=== PATIENT | female | born 1985 | race African-American/Black ===

== ENCOUNTER 2017-01-24 21:26 | Emergency (ER) | payer SELFPAY ==
[~2017-01-24] VITALS: Ht 162.6 cm; Wt 54.4 kg
--- NOTE | 2017-01-24 21:35 | PHYS DOC ---
Past Medical History Past Medical History: No Pertinent History Past Surgical History: Appendectomy, Drug Use: None Adult General HPI HPI Patient is a 31 year old female who presents with confusion or fever. EMS was called by family for her acting odd and breathing heavily. EMS found her to have a heart rate in the 130s to 150s and she stated she is from [place] down here visiting and took a pain medicine because she had a cyst removed recently. Here she denies any fevers chills nausea vomiting, abdominal pain, shortness of breath or dysuria. She denies any illicit drug use or alcohol use today. She does state she smokes cigarettes. Review of Systems Review of Systems Constitutional: Denies fever or chills [] Eyes: Denies change in visual acuity, redness, or eye pain [] HENT: Denies nasal congestion or sore throat [] Respiratory: Denies cough or shortness of breath [] Cardiovascular: No additional information not addressed in HPI [] GI: Denies abdominal pain, nausea, vomiting, bloody stools or diarrhea [] : Denies dysuria or hematuria [] Musculoskeletal: Denies back pain or joint pain [] Integument: Denies rash or skin lesions [] Neurologic: Denies headache, focal weakness or sensory changes [] Endocrine: Denies polyuria or polydipsia [] Current Medications Current Medications Current Medications Medications (Trade) Dose Ordered Sig/Sarah Start Time Stop Time Status Last Admin Dose Admin Sodium Chloride 1,000 ml @ 1,000 mls/hr 1X ONCE 01/25/17 00:45 01/25/17 01:44 DC 01/25/17 00:45 1,000 MLS/HR Allergies Allergies Allergies Coded Allergies Type Severity Reaction Last Updated Verified No Known Drug Allergies 10/24/14 No Physical Exam Physical Exam Constitutional: Well developed, well nourished, no acute distress, non-toxic appearance. [] HENT: Normocephalic, atraumatic, bilateral external ears normal, oropharynx moist, no oral exudates, nose normal. [] Eyes: PERRLA, EOMI, conjunctiva normal, no discharge. [] Neck: Normal range of motion, no tenderness, supple, no stridor. [] Cardiovascular:Heart rate regular rhythm, no murmur [] Lungs & Thorax: Bilateral breath sounds clear to auscultation [] Abdomen: Bowel sounds normal, soft, no tenderness, no masses, no pulsatile masses. [] Skin: Warm, dry, no erythema, no rash. [] Back: No tenderness, no CVA tenderness. [] Extremities: No tenderness, no cyanosis, no clubbing, ROM intact, no edema. [] Neurologic: Alert and oriented X 3, normal motor function, normal sensory function, no focal deficits noted. [] Psychologic: Affect normal, judgement normal, mood normal. [] Current Patient Data Vital Signs Vital Signs Date Time Temp Pulse Resp B/P (MAP) Pulse Ox O2 Delivery O2 Flow Rate FiO2 01/25/17 00:23 85 18 137/61 (86) 98 Room Air 01/24/17 21:30 98.8 98.8 Lab Values Laboratory Tests Test 01/24/17 21:31 01/24/17 22:00 01/24/17 22:25 01/24/17 22:31 Ammonia 21 mcmol/L (11-34) White Blood Count 9.4 x10^3/uL (4.0-11.0) Red Blood Count 3.89 x10^6/uL (3.50-5.40) Hemoglobin 13.3 g/dL (12.0-15.5) Hematocrit 40.0 % (36.0-47.0) Mean Corpuscular Volume 103 fL (79-100) H Mean Corpuscular Hemoglobin 34 pg (25-35) Mean Corpuscular Hemoglobin Concent 33 g/dL (31-37) Red Cell Distribution Width 13.5 % (11.5-14.5) Platelet Count 212 x10^3/uL (140-400) Neutrophils (%) (Auto) 80 % (31-73) H Lymphocytes (%) (Auto) 13 % (24-48) L Monocytes (%) (Auto) 6 % (0-9) Eosinophils (%) (Auto) 1 % (0-3) Basophils (%) (Auto) 1 % (0-3) Neutrophils # (Auto) 7.5 x10^3uL (1.8-7.7) Lymphocytes # (Auto) 1.2 x10^3/uL (1.0-4.8) Monocytes # (Auto) 0.5 x10^3/uL (0.0-1.1) Eosinophils # (Auto) 0.1 x10^3/uL (0.0-0.7) Basophils # (Auto) 0.1 x10^3/uL (0.0-0.2) Sodium Level 145 mmol/L (136-145) Potassium Level 3.4 mmol/L (3.5-5.1) L Chloride Level 109 mmol/L (98-107) H Carbon Dioxide Level 27 mmol/L (21-32) Anion Gap 9 (6-14) Blood Urea Nitrogen 14 mg/dL (7-20) Creatinine 1.0 mg/dL (0.6-1.0) Estimated GFR (Cockcroft-Gault) 77.7 Glucose Level 97 mg/dL (70-99) Calcium Level 10.1 mg/dL (8.5-10.1) Magnesium Level 2.2 mg/dL (1.8-2.4) Total Bilirubin 0.2 mg/dL (0.2-1.0) Direct Bilirubin 0.1 mg/dL (0.0-0.2) Aspartate Amino Transferase (AST) 19 U/L (15-37) Alanine Aminotransferase (ALT) 20 U/L (14-59) Alkaline Phosphatase 60 U/L (46-116) Creatine Kinase 295 U/L (26-192) H Creatine Kinase MB (Mass) 0.7 ng/mL (0.0-3.6) Creatine Kinase MB Relative Index 0.2 % (0-4) Troponin I Quantitative < 0.017 ng/mL (0.000-0.055) UO-Lkw-[id number]-Type Natriuretic Peptide 132 pg/mL (0-124) H Total Protein 8.2 g/dL (6.4-8.2) Albumin 4.3 g/dL (3.4-5.0) Salicylates Level 3.0 mg/dL (2.8-20.0) Salicylate Last Dose Date Salicylate Last Dose Time Acetaminophen Level < 2 mcg/ml (10-30) L Acetaminophen Last Dose Date Acetaminophen Last Dose Time Ethyl Alcohol Level < 10 mg/dL (0-10) Prothrombin Time 13.8 SEC (11.7-14.0) Prothrombin Time INR 1.1 (0.8-1.1) PTT 27 SEC (24-38) POC Urine HCG, Qualitative Hcg negative (Negative) Test 01/24/17 23:20 Urine Collection Type Unknown Urine Color Yellow Urine Clarity Clear Urine pH 6.5 Urine Specific [place] 1.020 Urine Protein Negative mg/dL (NEG-TRACE) Urine Glucose (UA) Negative mg/dL (NEG) Urine Ketones (Stick) Negative mg/dL (NEG) Urine Blood Negative (NEG) Urine Nitrite Negative (NEG) Urine Bilirubin Negative (NEG) Urine Urobilinogen Dipstick 0.2 mg/dL (0.2 mg/dL) Urine Leukocyte Esterase Small (NEG) Urine RBC 0 /HPF (0-2) Urine WBC 1-4 /HPF (0-4) Urine Squamous Epithelial Cells Many /LPF Urine Bacteria Moderate /HPF (0-FEW) Urine Mucus Marked /LPF Urine Opiates Screen Neg (NEG) Urine Methadone Screen Neg (NEG) Urine Barbiturates Neg (NEG) Urine Phencyclidine Screen Neg (NEG) Urine Amphetamine/Methamphetamine Pos (NEG) Urine Benzodiazepines Screen Neg (NEG) Urine Cocaine Screen Pos (NEG) Urine Cannabinoids Screen Neg (NEG) Urine Ethyl Alcohol Neg (NEG) Laboratory Tests 01/24/17 22:00 Laboratory Tests 01/24/17 22:00 EKG EKG View chest x-ray did not show any focal salt elevations, bony abnormality, pneumothorax, as interpreted by me. Radiology/Procedures Radiology/Procedures One view chest x-ray did not show any focal is elevations, pneumothorax, bony abnormalities, as interpreted by me. Impressions: Cocaine and methamphetamine abuse Course & Med Decision Making Course & Med Decision Making Pertinent Labs and Imaging studies reviewed. (See chart for details) Upon arrival patient is alert and oriented 3 however she is distracted by her person keeps digging through her purse looking papers. She will answer questions appropriately but is acting distracted. Patient has meth and cocaine in her system. She states she is no idea how this got there. I've offered to call the police and she's being poisoned. She states she's developed the police involved. She did ask for a pain medicine but states she left her pain medicines in [place] before she flew here. She then states she 's been here and walking on Thursday therefore I told her I'm not giving her anything for pain since she's not needed it for several days. I also informed her I did not sure believe her story that she is not using illicit drugs and showing pain seeking behaviors. She thanked me for helping her and now she is being discharged home in stable condition. She states her cousin can come pick her up. We did repeat her temperature is 98.6 at this time. Rashad Disclaimer Rashad Disclaimer This electronic medical record was generated, in whole or in part, using a voice recognition dictation system. Departure Departure Impression: Primary Impression: Polysubstance abuse Disposition: HOME, SELF-CARE Condition: STABLE Referrals: NO PCP (PCP) Patient Instructions: Polysubstance Abuse Additional Instructions: You were seen today for your altered mental status. Says now resolved. Your urine was positive for cocaine and methamphetamines. You should follow patient report since your unsure how this got your system. Please return the ER if you develop fevers, confusion, or other concerns. EDUARDO LOWE MD Jan 24, 2017 21:35
[2017-01-24] MEDS: IV NORMAL SALINE 1000ML BAG 1,000 ML IV ONE (21:45)
[2017-01-24 22:16] LABS: BASO # 0.1 x10^3/uL (0.0-0.2); BASO % 1 % (0-3); EOS % 1 % (0-3); HEMOGLOBIN 13.3 g/dL (12.0-15.5); LYMPH # 1.2 x10^3/uL (1.0-4.8); LYMPH % 13 % (24-48); MEAN CORPUSCULAR HEMOGLOBIN 34 pg (25-35); MEAN CORPUSCULAR HGB CONC 33 g/dL (31-37); MEAN CORPUSCULAR VOLUME 103 fL (79-100); MONO % 6 % (0-9); NEUT % 80 % (31-73); PLATELET COUNT 212 x10^3/uL (140-400); RED BLOOD COUNT 3.89 x10^6/uL (3.50-5.40); RED CELL DISTRIBUTION WIDTH 13.5 % (11.5-14.5); WHITE BLOOD COUNT 9.4 x10^3/uL (4.0-11.0)
[2017-01-24 22:26] LABS: CALCIUM 10.1 mg/dL (8.5-10.1); GFR 77.7; POTASSIUM 3.4 mmol/L (3.5-5.1)
[2017-01-24 22:32] LABS: ALBUMIN 4.3 g/dL (3.4-5.0); DIRECT BILIRUBIN 0.1 mg/dL (0.0-0.2); MAGNESIUM 2.2 mg/dL (1.8-2.4); TOTAL BILIRUBIN 0.2 mg/dL (0.2-1.0); TOTAL PROTEIN 8.2 g/dL (6.4-8.2)
[2017-01-24 22:46] LABS: INR 1.1 (0.8-1.1); PROTHROMBIN TIME PATIENT 13.8 SEC (11.7-14.0)
[2017-01-24 22:51] LABS: ETHANOL < 10 mg/dL (0-10)
[2017-01-24 22:52] LABS: CKMB MASS 0.7 ng/mL (0.0-3.6)
[2017-01-24 23:33] LABS: BILIRUBIN,URINE NEGATIVE (NEG); GLUCOSE,URINE NEGATIVE (NEG); NITRITE,URINE NEGATIVE (NEG); PH,URINE 6.5; PROTEIN,URINE NEGATIVE (NEG-TRACE); UROBILINOGEN,URINE 0.2 mg/dL (0.2 mg/dL)
[2017-01-24 23:40] LABS: BACTERIA,URINE MODERATE /HPF (0-FEW); BARBITURATES NEG (NEG); BENZODIAZEPINES NEG (NEG); CANNABINOIDS NEG (NEG); COCAINE POS (NEG); METHADONE NEG (NEG); OPIATES NEG (NEG); PHENCYCLIDINE NEG (NEG); RBC,URINE 0 /HPF (0-2); SQUAMOUS EPITHELIAL CELL,UR MANY /LPF
[2017-01-25] MEDS: IV NORMAL SALINE 1000ML BAG 1,000 ML IV ONE (00:45)
[2017-01-25 02:35] VITALS: BP 126/76
--- NOTE | 2017-01-25 08:19 | RAD ---
Chest, 2 views, 01/24/2017: History: Altered mental status, fever, possible drug abuse The heart size is normal. The lungs are clear. There is no evidence of pleural fluid. IMPRESSION: No acute cardiopulmonary abnormality is detected.
--- NOTE | 2017-01-25 08:20 | EKG ---
[facility] [address] [place] [address] Test Date: 2017-01-24 Test Time: 22:22:55 Pat Name: FABI CALIXTO Department: Room: Gender: F Health Data Analyst: : 1985 Requested By: EDUARDO LOWE Order Number: [id number] Reading MD: Naveen Petit Measurements Intervals [place] Rate: 97 P: 78 UT: 98 QRS: 66 QRSD: 68 T: 48 QT: 334 QTc: 428 Interpretive Statements SINUS RHYTHM LEFT ATRIAL ABNORMALITY RI6.01 Unconfirmed report No previous ECG available for comparison normal for age Electronically Signed On 01-25-2017 15:54:51 CDT by Naveen Petit
== END 2017-01-25 02:35 | disposition home or self-care (01) ==
LOC: ER 21:26
DX: F19.10 Other psychoactive substance abuse, uncomplicated (principal); F15.10 Other stimulant abuse, uncomplicated; F14.10 Cocaine abuse, uncomplicated; F17.210 Nicotine dependence, cigarettes, uncomplicated; Z90.49 Acquired absence of other specified parts of digestive tract
CPT/HCPCS: 36415; 71020; 80048; 80076; 80305; 80320; 80329; 81001; 81025; 82140; 82553; 83735; 83880; 84484; 85027; 85610; 85730; 87086; 93005; 96360; 96361; 99285; J7030; G0480; G0481

== ENCOUNTER 2019-09-02 17:28 | Emergency (ER) | payer SELFPAY ==
[~2019-09-02] VITALS: Ht 152.4 cm; Wt 50.0 kg
[2019-09-02 18:02] VITALS: BP 153/84
--- NOTE | 2019-09-02 18:23 | PHYS DOC ---
Past Medical History Past Medical History: No Pertinent History (ROBIN WALKER APRN) Past Surgical History: Appendectomy, (ROBIN WALKER APRN) Smoking Status: Current Every Day Smoker Alcohol Use: Occasionally Drug Use: None (ROBIN WALKER APRN) Attending Signature I have participated in the care of this patient and I have reviewed and agree with all pertinent clinical information above including history, exam, and recommendations. (JONG NINA MD) Adult General Chief Complaint Chief Complaint: MEDICATION REFILL HPI HPI Patient is a 33 year old female who presents to the ED today requesting medication refill rest Risperadol and Zoloft which she takes for depression. Patient reports she's been out of the medication for 3 months. She states she recently moved to [place] and has no health insurance or provider. Denies any suicidal or homicidal ideations. (ROBIN WALKER APRN) Review of Systems Review of Systems Constitutional: Denies fever or chills [] Musculoskeletal: Denies back pain or joint pain [] Integument: Denies rash or skin lesions [] Neurologic: Denies headache, focal weakness or sensory changes [] Psych: Medication refill for psych medications. All other systems were reviewed and found to be within normal limits, except as documented in this note. (ROBIN WALKER APRN) Allergies Allergies Allergies Coded Allergies Type Severity Reaction Last Updated Verified No Known Drug Allergies 10/24/14 No (JONG NINA MD) Physical Exam Physical Exam Constitutional: Well developed, well nourished, no acute distress, non-toxic appearance. [] Skin: Warm, dry, no erythema, no rash. [] Back: No tenderness, no CVA tenderness. [] Extremities: No tenderness, no cyanosis, no clubbing, ROM intact, no edema. [] Neurologic: Alert and oriented X 3, normal motor function, normal sensory function, no focal deficits noted. [] Psychologic: Affect normal, judgement normal, mood normal. [] (ROBIN WALKER APRN) Current Patient Data Vital Signs Vital Signs Date Time Temp Pulse Resp B/P (MAP) Pulse Ox O2 Delivery O2 Flow Rate FiO2 09/02/19 18:02 97.8 113 17 153/84 (107) 96 Room Air 97.8 (JONG NINA MD) EKG EKG [] (ROBIN WALKER APRN) Radiology/Procedures Radiology/Procedures [] (ROBIN WALKER APRN) Course & Med Decision Making Course & Med Decision Making Pertinent Labs and Imaging studies reviewed. (See chart for details) This is a 33 year old female presented to the ED today for medication refill for Respiradol Zoloft, she's been out of the medication for 3 months. Patient met hospital MSE protocol. She left (ROBIN WALKER APRN) Dragon Disclaimer Dragon Disclaimer This electronic medical record was generated, in whole or in part, using a voice recognition dictation system. (ROBIN WALKER APRN) Departure Departure Impression: Primary Impression: Medication refill Disposition: 07 AGAINST MEDICAL ADVICE Condition: STABLE Referrals: NO PCP (PCP) ROBIN WALKER APRN Sep 02, 2019 18:23 JONG NINA MD Sep 02, 2019 22:26
== END 2019-09-02 18:14 | disposition home or self-care (01) ==
LOC: ER 17:28
DX: F32.9 Major depressive disorder, single episode, unspecified (principal); F17.200 Nicotine dependence, unspecified, uncomplicated; Z76.0 Encounter for issue of repeat prescription; Z90.89 Acquired absence of other organs; Z98.890 Other specified postprocedural states
CPT/HCPCS: 99281